=== PATIENT | female | born 1950 | race Caucasian/White ===

== ENCOUNTER → 2017-09-14 | Outpatient (CLI) | payer MEDICARE, OTHER ==
[~2017-09-14] MED LIST: AMBIEN CR12.5 MG PO; ASPIR 8181 MG PO; ATORVASTATIN CA20 MG PO; BYSTOLIC10 MG PO; CLONAZEPAM0.5 MG PO; DIOVAN HCT 1601 EACH PO; DIOVAN160 MG PO; METOPROLOL SUCC50 MG PO; NITROGLYCERIN PO; PEPCID20 MG PO; PROZAC20 MG PO; SIMVASTATIN40 MG PO; WARFARIN SODIUM5 MG PO
--- NOTE | 2017-09-14 17:08 | Diagnostic Imaging Report ---
Examination: CT BRAIN WITHOUT CONTRAST History:Fall. Headaches. Comparison studies:None Technique: Axial images were obtained from the skull base to the vertex. Coronal and sagittal images reconstructed from the axial data. Intravenous contrast: None Findings: Scalp: No abnormalities. Bones: No fractures, blastic or lytic lesions. Brain sulci: Mild central volume loss for age. Ventricles: Ex vacuo dilatation. No hydrocephalus. Extra-axial space: No abnormalities. Parenchyma: There are chronic lacunar infarcts seen in the right striatocapsular region and right frontal maloney radiata. There are patchy and confluent areas of hypoattenuation in the periventricular and subcortical white matter, nonspecific. No masses, hemorrhage, or acute or chronic cortical based vascular insults. Sellar/suprasellar region: No abnormalities. Craniocervical junction: Patent foramen magnum. No Chiari one malformation. Incidental findings: None. Impression: 1. No acute intracranial abnormalities. 2. Mild chronic microvascular ischemic change and volume loss. 3. Chronic lacunar infarcts, as above. Signed by: Dr. Komal Gruber M.D. on 09/14/2017 5:04 PM
== END ==
LOC: CT 16:16
PROVIDERS: ATTEND Family Medicine
DX: S00.93XA Contusion of unspecified part of head, initial encounter (principal); R42 Dizziness and giddiness; Z79.01 Long term (current) use of anticoagulants
CPT/HCPCS: 70450

== ENCOUNTER 2017-10-05 18:17 | Emergency (ER) | payer MEDICARE ==
[~2017-10-05] VITALS: Ht 157.5 cm; Wt 69.9 kg
[~2017-10-05 18:17] MED LIST changes: -ATORVASTATIN CA20 MG PO; -METOPROLOL SUCC50 MG PO; -NITROGLYCERIN PO; -PEPCID20 MG PO; -WARFARIN SODIUM5 MG PO
--- OUTSIDE RECORDS SUMMARY | 2017-10-05 18:19 | XMS REPORT ---
[facility] Address Unknown Phone Unavailable Care Team Providers Care [employer] Name Role Phone SIMIN SIEGEL Unavailable Unavailable Problems This patient has no known problems. Allergies, Adverse Reactions, Alerts This patient has no known allergies or adverse reactions. Medications This patient has no known medications. Results Test Description Test Time Test Comments Text Results Atomic Results Result Comments CT BRAIN WO [place] [address] Patient Name: TOREY ALVAREZ MR #: [id number] : 1950 Age/Sex: 66/F Req #: [id number] Adm Physician: Ordered by: SIMIN SIEGEL DO Report #: [id number] Location: CT Room/Bed: Procedure: [id number] CT/CT BRAIN WO Exam Date: 09/14/17 Exam Time: 1635 REPORT STATUS: Signed Examination: CT BRAIN WITHOUT CONTRAST History:Fall. Headaches. Comparison studies:None Technique: Axial images were obtained from the skull base to the vertex. Coronal and sagittal images reconstructed from the axial data. Intravenous contrast: None Findings: Scalp: No abnormalities. Bones: No fractures, blastic or lytic lesions. Brain sulci: Mild central volume loss for age. Ventricles: Ex vacuo dilatation. No hydrocephalus. Extra-axial space: No abnormalities. Parenchyma: There are chronic lacunar infarcts seen in the right striatocapsular region and right frontal maloney radiata. There are patchy and confluent areas of hypoattenuation in the periventricular and subcortical white matter, nonspecific. No masses, hemorrhage, or acute or chronic cortical based vascular insults. Sellar/suprasellar region: No abnormalities. Craniocervical junction: Patent foramen magnum. No Chiari one malformation. Incidental findings: None. Impression: 1. No acute intracranial abnormalities. 2. Mild chronic microvascular ischemic change and volume loss. 3. Chronic lacunar infarcts, as above. Signed by: Dr. Komal Gruber M.D. on 09/14/2017 5:04 PM Dictated By: KOMAL REDD MD 03 Transcribed By: RADHA on 09/14/171703 COPY TO: SIMIN SIEGEL DO
[2017-10-05 20:55] LABS: BILIRUBIN,URINE NEGATIVE (NEGATIVE); COLOR,URINE YELLOW (YELLOW); KETONES,URINE NEGATIVE (NEGATIVE); LEUKOCYTE ESTERASE ,URINE 1+ (NEGATIVE); NITRITE,URINE NEGATIVE (NEGATIVE); PROTEIN,URINE DIPSTICK NEGATIVE (NEGATIVE); URINE UROBILINOGEN 0.2 mg/dL (0.2 - 1)
[2017-10-05 21:00] LABS: CLARITY,URINE SL CLOUDY (CLEAR)
[2017-10-05 21:13] LABS: BACTERIA,URINE RARE /HPF; EPITHELIAL CELLS,URINE FEW /LPF
== END 2017-10-05 20:54 | disposition left against medical advice (07) ==
LOC: ER 18:17
DX: R07.89 Other chest pain (principal); I10 Essential (primary) hypertension; I69.80 Unspecified sequelae of other cerebrovascular disease; I25.10 Atherosclerotic heart disease of native coronary artery without angina pectoris
CPT/HCPCS: 81001; 93005; 99281

== ENCOUNTER → 2018-01-05 | Day surgery (SDC) | payer MEDICARE ==
[~2018-01-05] VITALS: Ht 157.5 cm; Wt 78.0 kg
[~2018-01-05] MED LIST changes: +ATORVASTATIN CA20 MG PO; +METOPROLOL SUCC50 MG PO; +NITROGLYCERIN PO; +PEPCID20 MG PO; +WARFARIN SODIUM5 MG PO
[2018-01-05 14:28] VITALS: BP 155/67
[2018-01-05 16:50] VITALS: BP 191/85
--- NOTE | 2018-01-05 18:26 | Operative Report ---
DATE OF PROCEDURE: January 05, 2018 INDICATIONS: Palpitations. PROCEDURE PERFORMED: Insertable loop recorder. The left anterior chest was anesthetized using subcutaneous lidocaine. A [employer] LINQ was inserted without complications. Skin approximated using Dermabond. Patient discharged home the same day. Job#: [id number]
== END | disposition home or self-care (01) ==
LOC: CATH LAB 12:24
PROVIDERS: ATTEND Internal Medicine Interventional Cardiology
DX: R00.2 Palpitations (principal); I25.118 Atherosclerotic heart disease of native coronary artery with other forms of angina pectoris; R55 Syncope and collapse; I10 Essential (primary) hypertension; Z88.0 Allergy status to penicillin; Z88.8 Allergy status to other drugs, medicaments and biological substances; Z79.01 Long term (current) use of anticoagulants; Z79.82 Long term (current) use of aspirin; Z68.32 Body mass index [BMI] 32.0-32.9, adult; Z82.49 Family history of ischemic heart disease and other diseases of the circulatory system
CPT/HCPCS: 33282; C1764